=== PATIENT | female | born 2000 | race Caucasian/White ===

== ENCOUNTER 2022-08-14 21:59 | Emergency (ER) | payer OTHER ==
[~2022-08-14] VITALS: Ht 162.6 cm; Wt 75.7 kg
[2022-08-14 22:00] VITALS: BP 126/90
--- NOTE | 2022-08-14 22:03 | NUR ---
TO LOBBY A/W BED VIA WHEELCHAIR
--- NOTE | 2022-08-14 22:17 | NUR ---
PT W/C ASSISTED TO BED#9
[2022-08-14] MEDS ORDERED: METOCLOPRAMIDE 10 MG/2 ML INJ VIAL IM ONE (22:30)
[2022-08-14] MEDS ORDERED: ACETAMINOPHEN EXTRA STRENGTH 500 MG TAB PO ONE (22:30)
--- NOTE | 2022-08-14 22:38 | NUR ---
Patient being evaluated by physician at bedside.
[2022-08-14] MEDS ORDERED: NACL 0.9% 1,000 ML IV ONE (22:45)
[2022-08-14] MEDS ORDERED: METOCLOPRAMIDE 10 MG/2 ML INJ VIAL IVP ONE (22:45)
[2022-08-14] MEDS ORDERED: diphenhydrAMINE 50 MG/ML VIAL IVP ONE (22:45)
[2022-08-14] MEDS ORDERED: LACTULOSE 20 GM/30 ML UDC PO ONE (22:50)
[2022-08-14] MEDS ORDERED: DOCUSATE SODIUM 100 MG GELCAP PO SCH (22:50)
[2022-08-14] MEDS ORDERED: POLYETHYLENE GLYCOL 17 GM/PKT PO ONE (22:50)
[2022-08-14 22:53] LABS: BASOPHILS % (AUTO) 0.1 % (0.0-2.0); HEMATOCRIT 39.2 % (36-48); HEMOGLOBIN 13.3 g/dL (12.0-16.0); LYMPHOCYTES # (AUTO) 1.2 K/uL (2.5-16.5); LYMPHOCYTES % (AUTO) 8.5 % (20.5-51.1); MEAN CORPUSCULAR HEMOGLOBIN 29 pg (27-31); MEAN CORPUSCULAR HGB CONC 34 g/dL (33-37); MEAN CORPUSCULAR VOLUME 86.1 fL (80-94); MONOCYTES # (AUTO) 0.5 K/uL (0.8-1.0); MONOCYTES % (AUTO) 3.6 % (1.7-9.3); NEUTROPHILS # (AUTO) 12.9 K/uL (1.8-7.7); NEUTROPHILS % (AUTO) 87.8 % (42.2-75.2); PLATELET COUNT (AUTO) 470 K/uL (140-450); RED BLOOD CELL COUNT(AUTO) 4.55 MIL/uL (4.20-5.40); RED CELL DISTRIBUTION WIDTH 13.7 % (11.6-13.7); WHITE BLOOD COUNT (AUTO) 14.6 K/uL (4.8-10.8)
[2022-08-14] MEDS ORDERED: fentaNYL citrate 0.05 MG/ML VIAL IVP ONE (23:00)
[2022-08-14 23:12] LABS: ALBUMIN 3.6 g/dL (3.4-5.0); ANION GAP 15.5 (8-16); CARBON DIOXIDE 23.2 mmol/L (21-32); CREATININE 0.8 mg/dL (0.6-1.3); POTASSIUM 3.7 mmol/L (3.5-5.1); TOTAL BILIRUBIN 1.5 mg/dL (0.0-1.0)
--- NOTE | 2022-08-14 23:48 | NUR ---
US AT BEDSIDE
--- NOTE | 2022-08-15 02:25 | NUR ---
pt ambulated to the bathroom with a steady gait.
--- NOTE | 2022-08-15 02:57 | NUR ---
IV removed, catheter intact and site benign. Applied folded 4x4 gauze and tape to stop bleeding.
[2022-08-15 03:10] VITALS: BP 122/78
--- NOTE | 2022-08-15 03:10 | NUR ---
Patient discharged. Written and verbal after care instructions given and explained about constipation and first trimester of . Patient verbalized understanding. Ambulatory with steady gait. ID band removed. All questions addressed prior to discharge. Advised to follow up with PMD.
== END 2022-08-15 03:10 | disposition home or self-care (01) ==
LOC: MED 21:59
DX: O26.891 Other specified pregnancy related conditions, first trimester (principal); K59.00 Constipation, unspecified; Z3A.01 Less than 8 weeks gestation of pregnancy
CPT/HCPCS: 36415; 76801; 80053; 81002; 81025; 83690; 84702; 85025; 86900; 86901; 96361; 96372; 96374; 99284; J1200; J2765; J7030; Q0092